=== PATIENT | female | born 1980 | race Caucasian/White ===

== ENCOUNTER 2017-01-10 14:09 | Emergency (ER) | payer OTHER ==
[~2017-01-10] VITALS: Ht 160 cm; Wt 87.0 kg
[~2017-01-10 14:09] MED LIST: ALBUTEROL SULF8.5 GM IH; CIPRO500 MG PO; DULERA 200 MCG/13 GM IH; IMODIUM MS REL1 EACH PO; LEXAPRO20 MG PO; LISINOPRIL20 MG PO; MONTELUKAST SOD10 MG PO; MULTIVITAMIN1 EAC2 PO; PREDNISONE20 MG PO; PROVERA,CYCRIN10 MG PO; VENTOLIN HFA18 GM IH; VERAPAMIL HCL360 MG PO; VERELAN 360 MG360 MG PO; XANAX0.25 MG PO; XANAX0.5 MG PO; ZANTAC150 MG PO; ZITHROMAX Z-PA250 MG PO; ZOFRAN ODT4 MG PO; ZYRTEC10 M2 PO; ZYRTEC10 M3 PO
[2017-01-10 15:09] LABS: MCH 30.3 PG (29.0-34.0); MCHC 34.6 G/DL (30.0-36.0); MCV 87.6 FL (83-99); MEAN PLAT.VOLUME 10.5 uM^3 (9.5-12.4); PLATELET COUNT 292 K/uL (156-360); RBC DIS.WIDTH-CV 12.3 % (11.8-14.6); RBC DIS.WIDTH-SD 39.2 % (39-53); RED BLOOD COUNT 5.48 M/uL (3.80-5.20); WHITE BLOOD COUNT 12.7 K/uL (4.1-10.2)
[2017-01-10 15:17] LABS: CHLORIDE 107 mEq/L (99-109); POTASSIUM 3.9 mEq/L (3.7-5.4); SODIUM 139 mEq/L (136-147)
[2017-01-10 15:19] LABS: GLUCOSE 91 mg/dL (70-99)
[2017-01-10 15:20] LABS: ANION GAP 8 MEQ/L (2-14)
[2017-01-10 15:23] LABS: GFR ESTIMATE (CALCULATED) > 59 mL/min/
[2017-01-10 15:24] LABS: UREA NITROGEN (BUN) 10 mg/dL (9-23)
[2017-01-10 15:29] LABS: TROP-I INTERPRETATION NEGATIVE; TROPONIN-I < 0.01 ng/mL (0.0-0.30)
[2017-01-10 16:11] LABS: QUANTITATIVE HCG < 4.0 MIU/ML
[2017-01-10 16:33] LABS: ADD MIUA? NO; BILIRUBIN NEGATIVE; BLOOD NEGATIVE; COLOR STRAW ((YELLOW)); GLUCOSE (STRIP) NEGATIVE; KETONES NEGATIVE; LEUKOCYTES NEGATIVE; NITRITE NEGATIVE; PROTEIN (STRIP) NEGATIVE; SPECIFIC GRAVITY 1.011 (1.000-1.030); UROBILINOGEN 0.2 MG/DL (0.2-1.0)
[2017-01-10 17:35] LABS: TROP-I INTERPRETATION NEGATIVE; TROPONIN-I < 0.01 ng/mL (0.0-0.30)
[2017-01-10] MEDS ORDERED: HYDROCHLOROTH12.5 M3 PO (17:49)
[2017-01-10 17:57] VITALS: BP 122/86
== END 2017-01-10 17:57 | disposition home or self-care (01) ==
LOC: RME 14:09 → EME 14:09 → RME 17:57
PROVIDERS: Nurse Practitioner Family
DX: R07.89 Other chest pain (principal); I10 Essential (primary) hypertension; F17.200 Nicotine dependence, unspecified, uncomplicated
CPT/HCPCS: 71020; 80048; 81003; 84484; 84702; 85027; 93005; 99281; 99284

== ENCOUNTER 2017-05-27 10:28 | Emergency (ER) | payer OTHER ==
[~2017-05-27] VITALS: Ht 160 cm; Wt 81.7 kg
[~2017-05-27 10:28] MED LIST changes: +HYDROCHLOROTH12.5 M3 PO
[2017-05-27] MEDS ORDERED: METOPROLOL SUCC50 MG PO (11:34)
[2017-05-27 11:36] LABS: HEMATOCRIT 48.9 % (36.0-46.0); MCHC 35.6 G/DL (30.0-36.0); MCV 87.2 FL (83-99); MEAN PLAT.VOLUME 10.6 uM^3 (9.5-12.4); PLATELET COUNT 277 K/uL (156-360); RBC DIS.WIDTH-CV 12.2 % (11.8-14.6); RBC DIS.WIDTH-SD 38.8 % (39-53); RED BLOOD COUNT 5.61 M/uL (3.80-5.20); WHITE BLOOD COUNT 10.3 K/uL (4.1-10.2)
[2017-05-27] MEDS ORDERED: DULERA 200 MCG/13 GM IH (11:36)
[2017-05-27 11:46] LABS: CHLORIDE 106 mEq/L (99-109); SODIUM 141 mEq/L (136-147)
[2017-05-27 11:48] LABS: GLUCOSE 88 mg/dL (70-99)
[2017-05-27 11:49] LABS: ANION GAP 11 MEQ/L (2-14)
[2017-05-27 11:50] LABS: TOTAL BILIRUBIN 0.7 mg/dL (0.0-1.0)
[2017-05-27 11:51] LABS: ALKALINE PHOSPHATASE 88 IU/L (3-129)
[2017-05-27 11:52] LABS: GFR ESTIMATE (CALCULATED) > 59 mL/min/
[2017-05-27 11:53] LABS: UREA NITROGEN (BUN) 8 mg/dL (9-23)
[2017-05-27 11:55] LABS: LIPASE 185 U/L (1.0-51.0)
[2017-05-27 12:03] LABS: QUANTITATIVE HCG < 4.0 MIU/ML
[2017-05-27 13:21] LABS: ADD MIUA? YES; BILIRUBIN NEGATIVE; BLOOD NEGATIVE; COLOR AMBER ((YELLOW)); GLUCOSE (STRIP) NEGATIVE; KETONES 5; LEUKOCYTES NEGATIVE; NITRITE NEGATIVE; PROTEIN (STRIP) 30; SPECIFIC GRAVITY 1.026 (1.000-1.030); UROBILINOGEN 0.2 MG/DL (0.2-1.0)
[2017-05-27 13:26] LABS: BACTERIA RARE /HPF; EPITHELIAL CELLS 1+ /HPF; MUCUS 4+ /LPF; UCUL ADDED? NO; WHITE BLOOD CELLS 0-5 /HPF (0-5)
[2017-05-27] MEDS ORDERED: BENTYL20 MG PO (14:19)
[2017-05-27] MEDS ORDERED: ZOFRAN ODT4 MG PO (14:19)
[2017-05-27] MEDS ORDERED: PHENERGAN25 MG PR (14:19)
[2017-05-27 14:28] VITALS: BP 134/61
== END 2017-05-27 14:29 | disposition home or self-care (01) ==
LOC: EME 10:28
DX: R10.13 Epigastric pain (principal); R11.2 Nausea with vomiting, unspecified; K76.0 Fatty (change of) liver, not elsewhere classified; I10 Essential (primary) hypertension; J45.909 Unspecified asthma, uncomplicated; F17.210 Nicotine dependence, cigarettes, uncomplicated
CPT/HCPCS: 76705; 80053; 81003; 83690; 84702; 85027; 99281; 99285; J1885; J2405; J7030